=== PATIENT | male | born 1935 | race Caucasian/White ===

== ENCOUNTER 2018-11-15 11:15 | Outpatient (RCR) | payer OTHER, MEDICARE ==
[2016-07-21 15:46] VITALS: BMI 25.1
--- NOTE | 2018-11-06 10:49 | PT INITIAL EVALUATION ---
MEDICAL DIAGNOSIS: R53.1 Weakness TREATMENT DIAGNOSIS: Same, G20 Parkinson's Disease (PD), R26.9Abnormality of gait and mobility DATE OF ONSET: 03/26/18 SUBJECTIVE: Tin Hernandez (Bob) presents to PT for LE weakness from a more sedentary lifestyle after losing his son in Mar, 2018. He also has PD, LBP, hip pain, cervical stenosis affecting mobility. He lives alone in a trailer, 2 steps into it with handrail. He notes his endurance is limited, a shopping trip exhausts him, and he'd like to have more balance in outdoor ambulation. Pain location is lumbar and hips and described as ache. Jose Carlos doesn't care to rate his pain or discuss it. 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 OBJECTIVE: Posture: Upright trunk, head sidebend and rotated R ~25 degrees, B hand tremor. ROM: Tight ankles, hips, hamstrings. Strength: LE's 4/5. Special Tests: Modified Martha and Yahr Stage 3. Mobility: Sit to stand with UE use, one attempt. Gait: Jose Carlos ambulates with feet passing each other, late heel strike to early heel off, flexed LE's, diminished arm swing. He turns without lifting his feet well. Stair use without handrail, reciprocating gait. Balance: Perry Balance Assessment 44, a fall risk. Jose Carlos is able to lift a foot for 1-2 seconds for single leg sand, is able to perform rapid foot motions. He has small LOB and catches his R toes with trying to clear a curb. Forward stepping lunge with trunk shimmy. ASSESSMENT: Tin Hernandez presents with altered gait and balance, fall risk from sedentary lifestyle and PD. He's an excellent candidate to exercise to improve balance, endurance, reduce fall risk. He did well with dynamic strengthening exercises today. Short Term Goals 4 weeks: Jose Carlos shovels snow, ambulates through a full shopping trip. 8 weeks: Jose Carlos demonstrates balance recovery on uneven surfaces. Patient's Goals Improve balance, long distance community ambulator. PLAN: Patient to be seen for Strengthening/condition, Range of Motion, Stretching, Neuromuscular Re-ed, Gait Trg/Balance Trg, Home Exercise Program 2x/Week for 2 Months Thank you for this referral. If you have any questions, comments, or concerns about this report or plan, please contact me at . [facility]
[~2018-11-15 11:15] MED LIST: ASPI-1471 PO; ASPI-715 PO; BUDE10.2 INH; CARB-124 PO; CLO75 PO; CLOP75TA PO; COM14R IH; DAR100 PO; DOCU100T19 PO; LISI-346 PO; LISI-362 PO; LOR5 PO; METO-1 PO; METXR500 PO; NIT4 SL; OMEG500C7 PO; OMEP-125 PO; ONDA4TAB PO; OXYGEN INH; PAN40 PO; PANT40TA65 PO; RAN150 PO; RANI-445 PO; ROLAIDS; SIMV-44 PO; SUC1 PO; TAM4 PO; VIT C PO; ZANTAC; [UNRECOGNIZED DRUG - CODE] PO; [UNRECOGNIZED DRUG - REMARK]
--- NOTE | 2018-12-13 11:39 | PT PLAN OF CARE ---
Physician: Dr. Sandrine Cardona Patient has been ill, seen 4 times Therapist: Mounika Sprague, PT Medical Diagnosis: R53.1 Weakness Treatment Diagnosis: Same, G20 Parkinson's Disease (PD), R26.9Abnormality of gait and mobility Date of Onset: 03/26/18 Date of Initial Evaluation: 11/05/18 Date patient was last seen: 11/15/18 Number of treatments: 4 Number of cancellations/No shows: 5 INTERVENTIONS: Strengthening/condition Range of Motion Stretching Neuromuscular Re-ed Gait Trg/Balance Trg GOALS: All not met due to illness 4 weeks: Jose Carlos shovels snow, ambulates through a full shopping trip. 8 weeks: Jose Carlos demonstrates balance recovery on uneven surfaces. PATIENT'S GOAL: Improve balance, long distance community ambulator. Status of Patient's Goals: not met Patient Compliance: Excellent Prognosis: Excellent Reasons for discontinuing therapy: S: Jose Carlos had to cancel PT these last three weeks due to respiratory illness, then yesterday was admitted to [facility] for gastric bleed. He worked hard during the four sessions he was able to do PT. O: At his last visit on 11/15/18, Jose Carlos's high HR limited standing exercise (110 BPM). He was able to perform balance exercises with difficulty with pelvic and trunk stability. A/P: Tin Hernandez gave full effort during the time he was here. When he is able to, I feel he would benefit from PT to work strengthening, balance, endurance. For now, I'll DC PT due to hospitalization. Thank you. MIGUEL
== END 2018-11-15 18:00 | disposition home or self-care (01) ==
LOC: PT 11:15
PROVIDERS: ATTEND Family Medicine
DX: R53.1 Weakness (principal); R26.9 Unspecified abnormalities of gait and mobility; G20 Parkinson's disease
CPT/HCPCS: 97162

== ENCOUNTER 2018-12-03 13:23 | Emergency (ER) | payer MEDICARE, OTHER ==
[2016-07-21 15:46] VITALS: Wt 79.8 kg
--- NOTE | 2018-12-03 13:29 | ER Report ---
History and Physical Time Seen By MD: 13:29 HPI/ROS CHIEF COMPLAINT: Increased shortness of breath and cough HISTORY OF PRESENT ILLNESS: This is a 3-year-old male who presents to the emergency department for increased shortness breath and a cough. Patient states that he always has a cough however the last week he's had a productive, more intense cough. He's also had fevers and chills. No nausea or vomiting. A few loose stools no diarrhea. No chest pain. He normally is on 2 L nasal cannula continuous home however he is increase that to 3 L over the last 1-2 days, noted his SPO2 home to be in the mid to low 80s. No fevers or chills. No visual changes. No rashes, no sore throat. REVIEW OF SYSTEMS: Constitutional: As above. Eyes: No discharge. ENT: No sore throat. Cardiovascular: No chest pain, no palpitations. Respiratory: As above. Gastrointestinal: No abdominal pain, no vomiting. Genitourinary: No hematuria. Musculoskeletal: No back pain. Skin: No rashes. Neurological: No headache. Allergies: Coded Allergies: No Known Drug Allergies (Verified , 12/03/18) Uncoded Allergies: VIT B (Allergy, Intermediate, HIVES, 07/20/16) Home Meds Active Scripts Albuterol Sulfate 0.083% (ALBUTEROL SULFATE 0.083%) 2.5 Mg/3 Ml Vial.neb, 2.5 MG INH Q4-6H PRN for SHORTNESS OF BREATH, #1 BOX 0 Refills Prov:ANGELES LOWERY [facility] 12/03/18 Prednisone (PREDNISONE) 20 Mg Tablet, 20 MG PO BID, #10 TAB Prov:ANGELES LOWERY [facility]- 12/03/18 Azithromycin 250 Mg Tab (AZITHROMYCIN 250 MG TAB) 250 Mg Tablet, 1 TAB PO QDAY, #6 TAB Take 2 tabs today and then 1 tab a day until gone. Prov:ANGELES LOWERY [facility]- 12/03/18 Clopidogrel Bisulfate (CLOPIDOGREL) 75 Mg Tablet, 1 TAB PO QDAY, #30 TAB Start on 07/28/16 Prov:CATE ARGUELLO DO 07/22/16 Aspirin (ASPIR 81) 81 Mg Tablet.dr, 81 MG PO QDAY, #30 TAB Start on 07/24/16 Prov:CATE ARGUELLO DO 07/22/16 Pantoprazole Sodium (PANTOPRAZOLE SODIUM) 40 Mg Tablet.dr, 40 MG PO BID, #60 TAB.SR Prov:CATE ARGUELLO DO 07/22/16 Reported Medications Budesonide/Formoterol Fumarate (SYMBICORT 160-4.5 MCG INHALER) 10.2 Gm Inh, INH, INH 07/20/16 [place]-3 Fatty Acids (FISH OIL) 500 Mg Capsule, 1000 MG PO DAILY, CAPSULE 07/20/16 Carbidopa/Levodopa (CARBIDOPA-LEVO ER 25-100 TAB) 1 Each Tablet.er, 2 TAB PO TID 07/20/16 Oxygen (Oxygen) 2 L Inha, 2 L INH PRN, 0 Refills 05/27/11 Docusate Sodium (Stool Softener) 100 Mg Tablet, 100 MG PO, 0 Refills 05/28/11 Simvastatin (Zocor) 40 Mg Tablet, 40 MG PO QHS, 0 Refills 05/27/11 Nitroglycerin (Nitroquick) 0.4 Mg Subl, 0.4 MG SL PRN, 0 Refills 05/27/11 Albuterol/Ipratropium (Combivent Inhaler) 14.7 Gm Aer.w.adap, 2 PUFF IH BID, 0 Refills 05/27/11 Past Medical/Surgical History The patient has a past medical and surgical history of Parkinson's, headaches, myocardial infarction, CABG 4, hypercholesterolemia, hypertension, COPD, continues using oxygen, gallbladder disease, cholecystectomy, GERD, generalized joint pain, type II diabetes, wears glasses, dentures. Reviewed Nurses Notes: Yes Hx Smoking: Yes Smoking Status: Current: Every Day Smoker Hx Substance Use Disorder: No Hx Alcohol Use: Yes Constitutional Vital Sign - Last 24 Hours 12/03/18 12/03/18 12/03/18 12/03/18 13:25 13:30 13:33 13:45 Temp 98.7 Pulse 73 68 69 Resp 18 29 B/P (MAP) 170/90 Pulse Ox 92 93 91 O2 Delivery Nasal Cannula O2 Flow Rate 2.0 12/03/18 12/03/18 12/03/18 12/03/18 14:00 14:05 14:30 14:35 Pulse 62 62 62 Resp 24 27 26 B/P (MAP) 133/74 (93) 133/77 (95) Pulse Ox 91 92 92 12/03/18 12/03/18 12/03/18 12/03/18 14:50 15:00 15:05 15:20 Pulse 64 67 66 Resp 24 11 21 B/P (MAP) 146/83 (104) Pulse Ox 93 93 92 12/03/18 12/03/18 12/03/18 15:30 15:35 15:50 Pulse 64 70 Resp 23 11 B/P (MAP) 137/72 (93) Pulse Ox 93 94 Physical Exam General Appearance: The patient is alert, has no immediate need for airway protection and no signs of toxicity. Eyes: Pupils equal and round no pallor or injection. ENT, Mouth: Mucous membranes are dry, geographic tongue. Respiratory: End expiratory wheezes in all mojica, rhonchi to the right upper field, diminished in the left lower field. Cardiovascular: Regular rate and rhythm, distant, no murmurs, clicks or rubs. Gastrointestinal: Abdomen is soft and non tender, no masses, bowel sounds normal. Neurological: Alert and oriented 4. Moving all extremities. Following all commands. No focal neuro deficits. Skin: Warm and dry, no rashes. Musculoskeletal: Anterior cervical chain lymphadenopathy. Extremities are nontender, nonswollen and have full range of motion. DIFFERENTIAL DIAGNOSIS: After history and physical exam differential diagnosis was considered for shortness of breath including but not limited to pulmonary infectious process, COPD, asthma, pulmonary embolus and congestive heart failure. Medical Decision Making Data Points Result Diagram: 12/03/18 1333 12/03/18 1333 Laboratory Hematology Test 12/03/18 13:33 12/03/18 13:41 Red Blood Count 5.14 M/uL (4.00-5.60) Mean Corpuscular Volume 87.6 fL (80.0-96.0) Mean Corpuscular Hemoglobin 28.8 pg (26.0-33.0) Mean Corpuscular Hemoglobin Concent 32.9 g/dL (32.0-36.0) Red Cell Distribution Width 13.4 % (11.5-14.5) Mean Platelet Volume 7.7 fL (7.2-11.1) Neutrophils (%) (Auto) 75.8 % (39.4-72.5) Lymphocytes (%) (Auto) 13.5 % (17.6-49.6) Monocytes (%) (Auto) 9.8 % (4.1-12.4) Eosinophils (%) (Auto) 0.6 % (0.4-6.7) Basophils (%) (Auto) 0.3 % (0.3-1.4) Nucleated RBC Relative Count (auto) 0.0 /100WBC Neutrophils # (Auto) 6.6 K/uL (2.0-7.4) Lymphocytes # (Auto) 1.2 K/uL (1.3-3.6) Monocytes # (Auto) 0.8 K/uL (0.3-1.0) Eosinophils # (Auto) 0.1 K/uL (0.0-0.5) Basophils # (Auto) 0.0 K/uL (0.0-0.1) Nucleated RBC Absolute Count (auto) 0.00 K/uL Sodium Level 135 mmol/L (137-145) Potassium Level 3.2 mmol/L (3.5-5.0) Chloride Level 98 mmol/L (98-107) Carbon Dioxide Level 29 mmol/L (22-30) Blood Urea Nitrogen 7 mg/dl (9-21) Creatinine 0.70 mg/dl (0.66-1.25) Glomerular Filtration Rate Calc > 60.0 Random Glucose 156 mg/dl (75-110) Calcium Level 8.8 mg/dl (8.4-10.2) Total Bilirubin 0.6 mg/dl (0.2-1.3) Aspartate Amino Transf (AST/SGOT) 21 U/L (0-35) Alanine Aminotransferase (ALT/SGPT) < 6 U/L (0-56) Alkaline Phosphatase 77 U/L (0-126) Troponin I < 0.012 ng/ml Total Protein 7.0 g/dl (6.3-8.2) Albumin 3.5 g/dl (3.5-5.0) Influenza Virus Type A (PCR) Negative (NEGATIVE) Influenza Virus Type B (PCR) Negative (NEGATIVE) Chemistry Test 12/03/18 13:33 12/03/18 13:41 White Blood Count 8.6 k/uL (4.5-11.0) Red Blood Count 5.14 M/uL (4.00-5.60) Hemoglobin 14.8 g/dL (14.0-18.0) Hematocrit 45.0 % (42.0-52.0) Mean Corpuscular Volume 87.6 fL (80.0-96.0) Mean Corpuscular Hemoglobin 28.8 pg (26.0-33.0) Mean Corpuscular Hemoglobin Concent 32.9 g/dL (32.0-36.0) Red Cell Distribution Width 13.4 % (11.5-14.5) Platelet Count 362 K/uL (150-450) Mean Platelet Volume 7.7 fL (7.2-11.1) Neutrophils (%) (Auto) 75.8 % (39.4-72.5) Lymphocytes (%) (Auto) 13.5 % (17.6-49.6) Monocytes (%) (Auto) 9.8 % (4.1-12.4) Eosinophils (%) (Auto) 0.6 % (0.4-6.7) Basophils (%) (Auto) 0.3 % (0.3-1.4) Nucleated RBC Relative Count (auto) 0.0 /100WBC Neutrophils # (Auto) 6.6 K/uL (2.0-7.4) Lymphocytes # (Auto) 1.2 K/uL (1.3-3.6) Monocytes # (Auto) 0.8 K/uL (0.3-1.0) Eosinophils # (Auto) 0.1 K/uL (0.0-0.5) Basophils # (Auto) 0.0 K/uL (0.0-0.1) Nucleated RBC Absolute Count (auto) 0.00 K/uL Glomerular Filtration Rate Calc > 60.0 Calcium Level 8.8 mg/dl (8.4-10.2) Total Bilirubin 0.6 mg/dl (0.2-1.3) Aspartate Amino Transf (AST/SGOT) 21 U/L (0-35) Alanine Aminotransferase (ALT/SGPT) < 6 U/L (0-56) Alkaline Phosphatase 77 U/L (0-126) Troponin I < 0.012 ng/ml Total Protein 7.0 g/dl (6.3-8.2) Albumin 3.5 g/dl (3.5-5.0) Influenza Virus Type A (PCR) Negative (NEGATIVE) Influenza Virus Type B (PCR) Negative (NEGATIVE) EKG/Imaging EKG Interpretation 12 lead EKG: Time of EKG 1336. Rhythm: Normal sinus rhythm, ventricular rate 68 bpm. Austin: Incomplete right bundle branch block. QRS: normal ST segments: No ST elevation or depression identified, poor T-wave progression No previous EKGs for comparison. Imaging PATIENT NAME: Tin Hernandez : 1935 MR: [id number] V: [id number] EXAM DATE: ORDERING PHYSICIAN: ANGELES LOWERY TECHNOLOGIST: [place] [facility] [place] Patient: Tin Hernandez : 1935 Visit/Account:[id number] Date of Sevice: 12/03/2018 CHEST PA LAT Additional pertinent History: Respiratory distress. COPD. Current smoker COMPARISON STUDIES: Previous study of 03/17/2011 FINDINGS: Support lines and catheters: Oxygen tubing Lungs and Pleura: Coarse bronchitic lung changes noted in both lower lung mojica most predominantly in the left lower lung medially. No infiltrate or consolidation. No parenchymal mass lesion seen Heart and vasculature: Negative. Cindy and Mediastinum: Negative. Bones and Chest wall: Status post sternotomy. Bilateral healed rib fractures Upper Abdomen: Negative. IMPRESSION: 1. Basilar bronchitic lung changes noted. No acute cardiopulmonary disease. Report Dictated By: Maxx Hernandez MD at 12/03/2018 2:31 PM Report E-Signed By: Maxx Hernandez MD at 12/03/2018 2:37 PM WSN:[email or web address] ED Course/Re-evaluation Clinical Indication for ER IV: Hydration, IV Access ED Course The patient was admitted to room. A history and physical were obtained. Differential diagnoses were considered. An IV was started. A CBC, CMP, troponin were obtained. A two-view chest x-ray was obtained. EKG showing normal sinus rhythm. CBC unremarkable, chemistry showing sodium 135, potassium 3.2, negative troponin, negative influenza. Two-view chest x-ray showing Basilar bronchitic lung changes noted. No acute cardiopulmonary disease. I reviewed the imaging results as well as the lab studies with the patient. The patient does have a history of COPD, given his recent increase in productive coughing I did put him on a short course of prednisone, he was also given an albuterol inhaler, he was also given a prescription for azithromycin. I also written for a nebulizer for home use. He is also [facility]2 [facility] for [facility]uation. Or return to the emergency department for any other concerns. Patient expressed understanding was discharged home. Decision to Disposition Date: Dec 03, 2018 Decision to Disposition Time: 15:10 Depart Departure Latest Vital Signs Vital Signs Date Time Temp Pulse Resp B/P (MAP) Pulse Ox O2 Delivery O2 Flow Rate FiO2 12/03/18 15:50 70 11 94 12/03/18 15:30 137/72 (93) 12/03/18 13:33 2.0 12/03/18 13:25 98.7 Nasal Cannula Impression: Primary Impression: COPD (chronic obstructive pulmonary disease) Additional Impression: Cough in adult Condition: Improved Disposition: HOME OR SELF-CARE New Scripts Albuterol Sulfate 0.083% (ALBUTEROL SULFATE 0.083%) 2.5 Mg/3 Ml Vial.neb 2.5 MG INH Q4-6H PRN for SHORTNESS OF BREATH, #1 BOX 0 Refills Prov: ANGELES LOWERY [facility] 12/03/18 Prednisone (PREDNISONE) 20 Mg Tablet 20 MG PO BID, #10 TAB Prov: ANGELES LOWERY [facility] 12/03/18 Azithromycin 250 Mg Tab (AZITHROMYCIN 250 MG TAB) 250 Mg Tablet 1 TAB PO QDAY, #6 TAB Take 2 tabs today and then 1 tab a day until gone. Prov: ANGELES LOWERY [facility]- 12/03/18 Departure Forms: ER Transition Record, Home Oxygen, Nebulizer RX, Home Oxygen Company Chosen by Patient: [facility] Durable Medical Equipment-Oxygen: Nebulizer Reason for Use/Diagnosis: COPD, cough, concerning for bronchitis Start Date of the Order: Dec 03, 2018 Duration Home O2 Required: 30 Duration Units: Days ER Prescribing Physician's Name: Other NPI Numbers for Local ER MDs: Other Medications Reconciliation, Patient Portal Information Patient Instructions: COPD (Chronic Obstructive Pulmonary Disease) (ED) Additional Instructions: Although your blood work and Xray do not indicate an infectious process, with the increased productive cough, increased O2 and your history of smoking and COPD, I am going to start you on Azithromycin. Please call and schedule a follow [facility] weeks for reevaluation. Take the Azithromycin as prescribed. Take the prednisone as prescribed. Use the nebulizer as needed for coughing and shortness of breath and wheezing. Drink plenty of water. Get plenty of rest. Return to the ED for any other concerns or worsening symptoms. They may want to repeat the chest Xray. Problem Qualifiers Primary Impression: COPD (chronic obstructive pulmonary disease) COPD type: unspecified COPD Qualified Codes: J44.9 - Chronic obstructive pulmonary disease, unspecified ANGELES LOWERY-CAROL ANN Dec 03, 2018 13:29
[2018-12-03] MEDS ORDERED: NS(*) 0.9% 500 ML BAG 500 ML IV ONE (13:47)
[2018-12-03] MEDS ORDERED: ALBUTEROL/IPRATROPIUM 3 ML NEB NEB ONE (13:50)
--- NOTE | 2018-12-03 13:51 | EKG ---
FACILITY: [facility] - [place] PATIENT NAME: KAIA REDMOND : [id number] MR: [id number] V: [id number] EXAM DATE: ORDERING PHYSICIAN: ANGELES LOWERY TECHNOLOGIST: ERIKA Garcia Reason : RESPIRATORY Blood Pressure : / mmHG Vent. Rate : 068 BPM Atrial Rate : 068 BPM P-R Int : 162 ms QRS Dur : 094 ms QT Int : 412 ms P-R-T Axes : 027 004 059 degrees QTc Int : 438 ms Normal sinus rhythm Anteroseptal infarct , age undetermined Abnormal ECG No previous ECGs available Confirmed by MAU KEE ([id number]) on 12/03/2018 2:18:31 PM Referred By: ESAU BLOUNT Confirmed By:MAU KEE
[2018-12-03 13:56] LABS: PLATELET COUNT, AUTOMATED 362 K/uL (150-450)
--- NOTE | 2018-12-03 14:41 | RADIOLOGY IMAGING REPORT ---
FACILITY: [facility] - [place] PATIENT NAME: Tin Hernandez : 1935 MR: [id number] V: [id number] EXAM DATE: ORDERING PHYSICIAN: ANGELES LOWERY TECHNOLOGIST: Location: [facility] - [place], [place] Patient: Tin Hernandez : 1935 Visit/Account:[id number] Date of Sevice: 12/03/2018 CHEST PA LAT Additional pertinent History: Respiratory distress. COPD. Current smoker COMPARISON STUDIES: Previous study of 03/17/2011 FINDINGS: Support lines and catheters: Oxygen tubing Lungs and Pleura: Coarse bronchitic lung changes noted in both lower lung mojica most predominantly in the left lower lung medially. No infiltrate or consolidation. No parenchymal mass lesion seen Heart and vasculature: Negative. Cindy and Mediastinum: Negative. Bones and Chest wall: Status post sternotomy. Bilateral healed rib fractures Upper Abdomen: Negative. IMPRESSION: 1. Basilar bronchitic lung changes noted. No acute cardiopulmonary disease. Report Dictated By: Maxx Hernandez MD at 12/03/2018 2:31 PM Report E-Signed By: Maxx Hernandez MD at 12/03/2018 2:37 PM WSN:[email or web address]
[2018-12-03] MEDS ORDERED: AZIT-18 PO (15:03)
[2018-12-03] MEDS ORDERED: PRED20TA6 PO (15:03)
[2018-12-03] MEDS ORDERED: ALBU2.5V36 INH (15:10)
[2018-12-03] MEDS ORDERED: ALBUTEROL 8 GM INHALER INH ONE (15:25)
[2018-12-03 15:30] VITALS: BP 137/72
== END 2018-12-03 16:05 | disposition home or self-care (01) ==
LOC: ER 13:37
DX: J44.9 Chronic obstructive pulmonary disease, unspecified (principal); R05 Cough; F17.210 Nicotine dependence, cigarettes, uncomplicated
CPT/HCPCS: 71046; 84484; 85025; 87502; 93005; 94640; 96360; 96361; 99284; J3535; J7040; J7620; 82040; 82247; 82310; 82374; 82435; 82565; 82947; 84075; 84132; 84155; 84295; 84450; 84460; 84520

== ENCOUNTER 2018-12-12 20:34 | Inpatient (IN) | payer OTHER ==
[2016-07-21 15:46] VITALS: Wt 82.3 kg
[~2018-12-12 20:34] MED LIST changes: -ACET-1966 PO; -ASCO-182 PO; -CHOL10005 PO; -METO25TA93 PO
[2018-12-12] MEDS ORDERED: CHOL10005 PO (20:49)
[2018-12-12] MEDS ORDERED: LISI-362 PO (20:49)
[2018-12-12] MEDS ORDERED: METO25TA93 PO (20:49)
--- NOTE | 2018-12-12 20:58 | ER Report ---
History and Physical Time Seen By MD: 20:58 Hx. of Stated Complaint: pt had a bloody stool this evening. HPI/ROS CHIEF COMPLAINT: bloody stool HISTORY OF PRESENT ILLNESS: This is an 83 year old male. He had a bloody stool and diarrhea this evening. No abdominal pain. He denies melena. Has history of peptic ulcer disease, CAD with CABG, Diabetes. He is on aspirin and plavix. He denies other blood thinners. He has had melena in the past with Colonoscopy and EGD in 2010 and 2015. Saw hiatal hernia and diverticulosis in the past. No dizziness or shortness of breath. No chest pain. Allergies: Coded Allergies: No Known Drug Allergies (Verified , 12/03/18) Uncoded Allergies: VIT B (Allergy, Intermediate, HIVES, 07/20/16) Home Meds Active Scripts Albuterol Sulfate 0.083% (ALBUTEROL SULFATE 0.083%) 2.5 Mg/3 Ml Vial.neb, 2.5 MG INH Q4-6H PRN for SHORTNESS OF BREATH, #1 BOX 0 Refills Prov:ANGELES LOWERY [employer]ASS[employer]GER [employer]-BC 12/03/18 Clopidogrel Bisulfate (CLOPIDOGREL) 75 Mg Tablet, 1 TAB PO QDAY, #30 TAB Start on 07/28/16 Prov:CATE ARGUELLO DO 07/22/16 Aspirin (ASPIR 81) 81 Mg Tablet.dr, 81 MG PO QDAY, #30 TAB Start on 07/24/16 Prov:CATE ARGUELLO DO 07/22/16 Pantoprazole Sodium (PANTOPRAZOLE SODIUM) 40 Mg Tablet.dr, 40 MG PO BID, #60 TAB.SR Prov:CATE ARGUELLO DO 07/22/16 Reported Medications Metoprolol Tartrate (METOPROLOL TARTRATE) 25 Mg Tablet, 2 TAB PO BID, TAB 12/12/18 Lisinopril (LISINOPRIL) 10 Mg Tablet, 10 MG PO QDAY, TAB 12/12/18 Cholecalciferol (Vitamin D3) (VITAMIN D3) 1,000 Unit Tablet, 1000 UNIT PO DAILY, TAB 12/12/18 Budesonide/Formoterol Fumarate (SYMBICORT 160-4.5 MCG INHALER) 10.2 Gm Inh, INH, INH 07/20/16 [place]-3 Fatty Acids (FISH OIL) 500 Mg Capsule, 1000 MG PO DAILY, CAPSULE 07/20/16 Carbidopa/Levodopa (CARBIDOPA-LEVO ER 25-100 TAB) 1 Each Tablet.er, 2 TAB PO TID 07/20/16 Oxygen (Oxygen) 2 L Inha, 2 L INH PRN, 0 Refills 05/27/11 Docusate Sodium (Stool Softener) 100 Mg Tablet, 100 MG PO, 0 Refills 05/28/11 Simvastatin (Zocor) 40 Mg Tablet, 40 MG PO QHS, 0 Refills 05/27/11 Nitroglycerin (Nitroquick) 0.4 Mg Subl, 0.4 MG SL PRN, 0 Refills 05/27/11 Albuterol/Ipratropium (Combivent Inhaler) 14.7 Gm Aer.w.adap, 2 PUFF IH BID, 0 R efills 05/27/11 Discontinued Scripts Prednisone (PREDNISONE) 20 Mg Tablet, 20 MG PO BID, #10 TAB Prov:ANG[facility]ES L[facility]- 12/03/18 Azithromycin 250 Mg Tab (AZITHROMYCIN 250 MG TAB) 250 Mg Tablet, 1 TAB PO QDAY, #6 TAB Take 2 tabs today and then 1 tab a day until gone. Prov:ANGELES LOWERY [facility]- 12/03/18 Reviewed Nurses Notes: Yes Hx Smoking: Yes Smoking Status: Current: Every Day Smoker Hx Substance Use Disorder: No Hx Alcohol Use: Yes Constitutional Vital Sign - Last 24 Hours 12/12/18 12/12/18 12/12/18 12/12/18 20:34 20:39 20:40 21:00 Temp 99.0 Pulse ??? 79 Resp 16 B/P (MAP) 171/90 (117) 171/90 163/82 (109) Pulse Ox 95 O2 Delivery High-Flow Nasal Cannula 12/12/18 12/12/18 12/12/18 12/12/18 21:04 21:30 21:34 22:00 Pulse 71 ??? B/P (MAP) 169/83 (111) 149/78 (101) Pulse Ox 96 96 12/12/18 12/12/18 12/12/18 12/12/18 22:04 22:09 22:30 22:39 Pulse 68 68 68 B/P (MAP) 138/69 (92) Pulse Ox 100 100 86 12/12/18 12/12/18 12/12/18 12/12/18 23:00 23:09 23:14 23:30 Pulse 68 77 B/P (MAP) 135/71 (92) 141/74 (96) Pulse Ox 86 87 12/12/18 12/13/18 23:44 00:00 Pulse 66 B/P (MAP) 137/70 (92) Pulse Ox 86 Physical Exam General Appearance: The patient is alert. No acute distress. Eyes: Pupils are equal, round. No pallor, injection or icterus. Extraocular movements are intact. ENT: Mucous membranes are moist. Normal oral mucosa. Posterior oropharynx is normal. Neck: Supple and non tender. No lymphadenopathy. Respiratory: Lungs are clear to auscultation. There are no retractions or accessory muscle use. Cardiovascular: Regular rate and rhythm. No murmurs, gallops or rubs. Normal capillary refill. No edema. Gastrointestinal: Abdomen is soft and non tender. Nondistended. Normal active bowel sounds. No costovertebral angle tenderness with percussion. Rectal exam without masses, no external hemorroids, Grossly bloody stool. Neurological: Alert and oriented x3. Skin: Warm and dry. No rashes. No bruising. Musculoskeletal: Extremities are nontender. No tenderness in palpation of the cervical, thoracic and lumbar spine. DIFFERENTIAL DIAGNOSIS: After history and physical exam, differential diagnosis was considered for blood in stool. Medical Decision Making Data Points Result Diagram: 12/12/18202912/12/182029 Laboratory Hematology Test 12/12/18 20:30 Red Blood Count 5.20 M/uL (4.00-5.60) Mean Corpuscular Volume 87.5 fL (80.0-96.0) Mean Corpuscular Hemoglobin 28.5 pg (26.0-33.0) Mean Corpuscular Hemoglobin Concent 32.5 g/dL (32.0-36.0) Red Cell Distribution Width 13.6 % (11.5-14.5) Mean Platelet Volume 8.4 fL (7.2-11.1) Neutrophils (%) (Auto) 72.9 % (39.4-72.5) Lymphocytes (%) (Auto) 14.4 % (17.6-49.6) Monocytes (%) (Auto) 8.2 % (4.1-12.4) Eosinophils (%) (Auto) 1.8 % (0.4-6.7) Basophils (%) (Auto) 2.7 % (0.3-1.4) Nucleated RBC Relative Count (auto) 0.0 /100WBC Neutrophils # (Auto) 5.6 K/uL (2.0-7.4) Lymphocytes # (Auto) 1.1 K/uL (1.3-3.6) Monocytes # (Auto) 0.6 K/uL (0.3-1.0) Eosinophils # (Auto) 0.1 K/uL (0.0-0.5) Basophils # (Auto) 0.2 K/uL (0.0-0.1) Nucleated RBC Absolute Count (auto) 0.00 K/uL Prothrombin Time 12.9 seconds (12.0-14.4) Prothromb Time International Ratio 0.97 Activated Partial Thromboplast Time 35 seconds (23-35) Urine Color Yellow Urine Clarity Clear Urine pH 6.0 pH (4.8-9.5) Urine Specific [place] 1.018 Urine Protein Negative mg/dL (NEGATIVE) Urine Glucose (UA) Negative mg/dL (NEGATIVE) Urine Ketones Trace mg/dL (NEGATIVE) Urine Blood Negative (NEGATIVE) Urine Nitrite Negative (NEGATIVE) Urine Bilirubin Negative (NEGATIVE) Urine Urobilinogen 4.0 mg/dL (0.2-1.9) Urine Leukocyte Esterase Negative (NEGATIVE) Urine RBC 3 /HPF (0-2/HPF) Urine WBC 1 /HPF (0-5/HPF) Urine Squamous Epithelial Cells None /LPF (</=FEW) Urine Bacteria Negative /HPF (NONE-FEW) Urine Mucus None /HPF (NONE-FEW) Sodium Level 138 mmol/L (137-145) Potassium Level 3.4 mmol/L (3.5-5.0) Chloride Level 98 mmol/L (98-107) Carbon Dioxide Level 31 mmol/L (22-30) Blood Urea Nitrogen 12 mg/dl (9-21) Creatinine 0.80 mg/dl (0.66-1.25) Glomerular Filtration Rate Calc > 60.0 Random Glucose 173 mg/dl (75-110) Calcium Level 8.9 mg/dl (8.4-10.2) Total Bilirubin 0.5 mg/dl (0.2-1.3) Aspartate Amino Transf (AST/SGOT) 15 U/L (0-35) Alanine Aminotransferase (ALT/SGPT) < 6 U/L (0-56) Alkaline Phosphatase 80 U/L (0-126) Total Protein 7.3 g/dl (6.3-8.2) Albumin 3.6 g/dl (3.5-5.0) Chemistry Test 12/12/18 20:30 White Blood Count 7.6 k/uL (4.5-11.0) Red Blood Count 5.20 M/uL (4.00-5.60) Hemoglobin 14.8 g/dL (14.0-18.0) Hematocrit 45.5 % (42.0-52.0) Mean Corpuscular Volume 87.5 fL (80.0-96.0) Mean Corpuscular Hemoglobin 28.5 pg (26.0-33.0) Mean Corpuscular Hemoglobin Concent 32.5 g/dL (32.0-36.0) Red Cell Distribution Width 13.6 % (11.5-14.5) Platelet Count 347 K/uL (150-450) Mean Platelet Volume 8.4 fL (7.2-11.1) Neutrophils (%) (Auto) 72.9 % (39.4-72.5) Lymphocytes (%) (Auto) 14.4 % (17.6-49.6) Monocytes (%) (Auto) 8.2 % (4.1-12.4) Eosinophils (%) (Auto) 1.8 % (0.4-6.7) Basophils (%) (Auto) 2.7 % (0.3-1.4) Nucleated RBC Relative Count (auto) 0.0 /100WBC Neutrophils # (Auto) 5.6 K/uL (2.0-7.4) Lymphocytes # (Auto) 1.1 K/uL (1.3-3.6) Monocytes # (Auto) 0.6 K/uL (0.3-1.0) Eosinophils # (Auto) 0.1 K/uL (0.0-0.5) Basophils # (Auto) 0.2 K/uL (0.0-0.1) Nucleated RBC Absolute Count (auto) 0.00 K/uL Prothrombin Time 12.9 seconds (12.0-14.4) Prothromb Time International Ratio 0.97 Activated Partial Thromboplast Time 35 seconds (23-35) Urine Color Yellow Urine Clarity Clear Urine pH 6.0 pH (4.8-9.5) Urine Specific [place] 1.018 Urine Protein Negative mg/dL (NEGATIVE) Urine Glucose (UA) Negative mg/dL (NEGATIVE) Urine Ketones Trace mg/dL (NEGATIVE) Urine Blood Negative (NEGATIVE) Urine Nitrite Negative (NEGATIVE) Urine Bilirubin Negative (NEGATIVE) Urine Urobilinogen 4.0 mg/dL (0.2-1.9) Urine Leukocyte Esterase Negative (NEGATIVE) Urine RBC 3 /HPF (0-2/HPF) Urine WBC 1 /HPF (0-5/HPF) Urine Squamous Epithelial Cells None /LPF (</=FEW) Urine Bacteria Negative /HPF (NONE-FEW) Urine Mucus None /HPF (NONE-FEW) Glomerular Filtration Rate Calc > 60.0 Calcium Level 8.9 mg/dl (8.4-10.2) Total Bilirubin 0.5 mg/dl (0.2-1.3) Aspartate Amino Transf (AST/SGOT) 15 U/L (0-35) Alanine Aminotransferase (ALT/SGPT) < 6 U/L (0-56) Alkaline Phosphatase 80 U/L (0-126) Total Protein 7.3 g/dl (6.3-8.2) Albumin 3.6 g/dl (3.5-5.0) Coagulation Test 12/12/18 20:30 Prothrombin Time 12.9 seconds Prothromb Time International Ratio 0.97 Activated Partial Thromboplast Time 35 seconds Urinalysis Test 12/12/18 20:30 Urine Color Yellow Urine Clarity Clear Urine pH 6.0 pH (4.8-9.5) Urine Specific [place] 1.018 Urine Protein Negative mg/dL (NEGATIVE) Urine Glucose (UA) Negative mg/dL (NEGATIVE) Urine Ketones Trace mg/dL (NEGATIVE) Urine Blood Negative (NEGATIVE) Urine Nitrite Negative (NEGATIVE) Urine Bilirubin Negative (NEGATIVE) Urine Urobilinogen 4.0 mg/dL (0.2-1.9) Urine Leukocyte Esterase Negative (NEGATIVE) Urine RBC 3 /HPF (0-2/HPF) Urine WBC 1 /HPF (0-5/HPF) Urine Squamous Epithelial Cells None /LPF (</=FEW) Urine Bacteria Negative /HPF (NONE-FEW) Urine Mucus None /HPF (NONE-FEW) ED Course/Re-evaluation Clinical Indication for ER IV: IV Access ED Course Labs show normal coags, H/H and platelets. Had another small bowel movement here, grossly bloody but not large amount. Type and screen ordered. Discussed with Dr. Gay who accepted the patient for admission. Decision to Disposition Date: Dec 12, 2018 Decision to Disposition Time: 23:01 Depart Departure Latest Vital Signs Vital Signs Date Time Temp Pulse Resp B/P (MAP) Pulse Ox O2 Delivery O2 Flow Rate FiO2 12/13/18 00:00 137/70 (92) 12/12/18 23:44 66 86 12/12/18 20:40 99.0 16 High-Flow Nasal Cannula Impression: Primary Impression: GI bleeding Condition: Condition Unchanged Disposition: Admitted from ER Problem Qualifiers Primary Impression: GI bleeding GI bleed type/associated pathology: unspecified gastrointestinal hemorrhage type Qualified Codes: K92.2 - Gastrointestinal hemorrhage, unspecified BARBARA VAZQUEZ MD Dec 12, 2018 20:58
[2018-12-12 21:57] LABS: PLATELET COUNT, AUTOMATED 347 K/uL (150-450)
[2018-12-12 22:01] LABS: INR 0.97
[2018-12-13] VITALS (7 sets, daily range): BP systolic 138–156; BP diastolic 71–92
[2018-12-13] MEDS ORDERED: NS(*) 0.9% 1000 ML BAG 1,000 ML IV PRN (01:05)
[2018-12-13] MEDS ORDERED: MORPHINE 2 MG/ML SYR IVP PRN (01:05)
[2018-12-13] MEDS ORDERED: ONDANSETRON 4 MG/2 ML VIAL IVP PRN (01:05)
[2018-12-13] MEDS ORDERED: FLUSH 10 ML SYR IVP PRN (08:20)
[2018-12-13] MEDS ORDERED: NITROGLYCERIN 0.4 MG SUBL SL SCH (08:20)
[2018-12-13] MEDS ORDERED: ALBUTEROL 2.5 MG/3 ML NEB INH PRN (08:20)
[2018-12-13] MEDS ORDERED: PANTOPRAZOLE SOD 40 MG TABEC PO SCH (09:00)
[2018-12-13] MEDS: CHOLECALCIFEROL 1000 UNIT TAB PO SCH ×2 (09:00→09:02)
[2018-12-13] MEDS: LISINOPRIL 10 MG TAB PO SCH (09:02)
[2018-12-13] MEDS: DOCUSATE SODIUM 100 MG CAP PO SCH ×2 (09:02→20:31)
[2018-12-13] MEDS: METOPROLOL TART 50 MG TAB PO SCH ×2 (09:18→20:31)
[2018-12-13] MEDS: ACETAMINOPHEN 325 MG TAB PO PRN ×2 (09:19→21:28)
[2018-12-13] MEDS: PANTOPRAZOLE SOD 40 MG TABEC PO SCH ×2 (09:19→20:31)
[2018-12-13] MEDS: LEVODOPA PO SCH ×3 (09:30→20:31)
[2018-12-13] MEDS: TABCR PO SCH ×3 (09:30→20:31)
[2018-12-13] MEDS: [UNRECOGNIZED DRUG - OTHER] PO SCH ×3 (09:30→20:31)
--- NOTE | 2018-12-13 09:30 | Gen Surgery History & Physical ---
History of Present Illness Chief Complaint Bright red blood per rectum History of Present Illness 83-year-old gentleman, known to me as I have treated him in the past for GI bleeding, comes into the emergency room after having had what he perceived to be a single large volume bright red blood per rectum. He was also complaining of some lightheadedness. He had no nausea, vomiting, abdominal pain, diarrhea, or constipation. He does have a remote history of hemorrhoids. 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 He then had another episode of melena 2 years ago and EGD and colonoscopy were once again completed with findings of diverticulosis but no active bleeding and no source of bleeding was identified. He is on chronic Plavix for coronary artery disease. He was admitted to the hospital and his vital signs are been stable overnight and he has had no further blood per rectum although he has had no bowel movements at all. He is passing flatus. He does have a previous history of peptic ulcer disease. History Problems: (1) CAD (coronary artery disease) Status: Chronic (2) PUD (peptic ulcer disease) Status: Chronic (3) Parkinsonian tremor Status: Chronic (4) Type 2 diabetes mellitus Status: Chronic (5) COPD (chronic obstructive pulmonary disease) Status: Chronic (6) S/P CABG (coronary artery bypass graft) Status: Resolved (7) S/P cholecystectomy Status: Resolved (8) S/P ERCP Status: Resolved (9) FH: heart attack (10) Family history of blood clots (11) FH: cancer of GI tract Home Meds Active Scripts Albuterol Sulfate 0.083% (ALBUTEROL SULFATE 0.083%) 2.5 Mg/3 Ml Vial.neb, 2.5 MG INH Q4-6H PRN for SHORTNESS OF BREATH, #1 BOX 0 Refills Prov:ANGELES LOWERY [employer] EDUCATION WORKER COORDINATOR-BC 12/03/18 Clopidogrel Bisulfate (CLOPIDOGREL) 75 Mg Tablet, 1 TAB PO QDAY, #30 TAB Start on 07/28/16 Prov:CATE ARGUELLO DO 07/22/16 Aspirin (ASPIR 81) 81 Mg Tablet.dr, 81 MG PO QDAY, #30 TAB Start on 07/24/16 Prov:CATE ARGUELLO DO 07/22/16 Pantoprazole Sodium (PANTOPRAZOLE SODIUM) 40 Mg Tablet.dr, 40 MG PO BID, #60 TAB.SR Prov:CATE ARGUELLO DO 07/22/16 Reported Medications Metoprolol Tartrate (METOPROLOL TARTRATE) 25 Mg Tablet, 2 TAB PO BID, TAB 12/12/18 Lisinopril (LISINOPRIL) 10 Mg Tablet, 10 MG PO QDAY, TAB 12/12/18 Budesonide/Formoterol Fumarate (SYMBICORT 160-4.5 MCG INHALER) 10.2 Gm Inh, INH, INH 07/20/16 [place]-3 Fatty Acids (FISH OIL) 500 Mg Capsule, 1000 MG PO DAILY, CAPSULE 07/20/16 Carbidopa/Levodopa (CARBIDOPA-LEVO ER 25-100 TAB) 1 Each Tablet.er, 2 TAB PO TID 07/20/16 Oxygen (Oxygen) 2 L Inha, 2 L INH PRN, 0 Refills 05/27/11 Docusate Sodium (Stool Softener) 100 Mg Tablet, 100 MG PO, 0 Refills 05/28/11 Simvastatin (Zocor) 40 Mg Tablet, 40 MG PO QHS, 0 Refills 05/27/11 Nitroglycerin (Nitroquick) 0.4 Mg Subl, 0.4 MG SL PRN, 0 Refills 05/27/11 Albuterol/Ipratropium (Combivent Inhaler) 14.7 Gm Aer.w.adap, 2 PUFF IH BID, 0 Refills 05/27/11 Discontinued Reported Medications Cholecalciferol (Vitamin D3) (VITAMIN D3) 1,000 Unit Tablet, 1000 UNIT PO DAILY, TAB 12/12/18 Discontinued Scripts Prednisone (PREDNISONE) 20 Mg Tablet, 20 MG PO BID, #10 TAB Prov:ANGELES LOWERY [employer]UC[employer] WORKER COORDINATOR-BC 12/03/18 Azithromycin 250 Mg Tab (AZITHROMYCIN 250 MG TAB) 250 Mg Tablet, 1 TAB PO QDAY, #6 TAB Take 2 tabs today and then 1 tab a day until gone. Prov:ANGELES LOWERY [employer] EDUC[employer] WORKER COORDINATOR-[employer] 12/03/18 Allergies: Coded Allergies: No Known Drug Allergies (Verified , 12/03/18) Uncoded Allergies: VIT B (Allergy, Intermediate, HIVES, 07/20/16) Patient History: Aneurysm Blood clots FATHER BROTHER OR SISTER FH: cancer of GI tract BROTHER OR SISTER FH: heart attack MOTHER BROTHER OR SISTER Exam General Appearance: Alert, Awake, No Acute Distress, Afebrile Neuro: No Gross deficits Eyes: PERRLA GI: Abd Soft and Non-Tender Extremities: Warm, Perfused Psych: Alert & Oriented X3, Appropriate Mood & Affect Medical Decision Making Data Points Result Diagram: 12/12/18202912/12/182029 Assessment and Plan Problems: (1) GI bleeding Status: Acute Assessment & Plan: 12/13/18: There is no signs of continued ongoing bleeding. We'll recheck the blood count this morning. Vitals have been completely stable. He is asymptomatic this morning. I discussed performing colonoscopy on him but he is not to motivated to do this, especially since he just had one 2 years ago. I discussed the options of observing him today and if he has no further episodes of bleeding other than possibly passing residual blood and his hemoglobin is stable his vital signs are stable then I can let him go home later today or tomorrow but if he has any recurrences then I have told him that it would be mandatory to perform colonoscopy. He is agreeable with this plan. I will check on him later today. Condition Stable Time Spent: < 30 min Venous Thromboembolism VTE Risk Physician Assess for VTE Risk: Yes Patient's VTE Risk: Low VTE Diagnostic Test 2 Days Prior to Admit: No Antithrombotics Is Pt On Any Antithrombotics?: No Prophylaxis Tx Contraindicated Pharmacological Contraindicati: Active Bleeding Problem Qualifiers (1) GI bleeding: GI bleed type/associated pathology: unspecified gastrointestinal hemorrhage type Qualified Codes: K92.2 - Gastrointestinal hemorrhage, unspecified CATE GUERRIER MD Dec 13, 2018 09:30
[2018-12-13] MEDS: OMEGA-3 500 MG CAP PO SCH (09:52)
[2018-12-13 10:26] LABS: PLATELET COUNT, AUTOMATED 282 K/uL (150-450)
[2018-12-13] MEDS: COMBIVENT 4 GR INHALER IH SCH ×2 (10:33→17:00)
[2018-12-13] MEDS: BUDESO/FORMOT 160/4.5 MCG 6 GM INH SCH ×2 (10:33→17:00)
[2018-12-13] MEDS ORDERED: ACET-1966 PO (14:19)
[2018-12-13] MEDS ORDERED: ASCO-182 PO (14:19)
[2018-12-13] MEDS ORDERED: SIMVASTATIN 40 MG TAB PO SCH (21:00)
[2018-12-14 03:19] VITALS: BP 131/75
[2018-12-14 05:44] LABS: PLATELET COUNT, AUTOMATED 258 K/uL (150-450)
[2018-12-14] MEDS: COMBIVENT 4 GR INHALER IH SCH (06:24)
[2018-12-14] MEDS: BUDESO/FORMOT 160/4.5 MCG 6 GM INH SCH (06:24)
--- NOTE | 2018-12-14 07:27 | Short(Outpt) Discharge Summary ---
Discharge Summary Reason for Hosp/Final Diag: (1) GI bleeding Status: Acute Hospital Course & Plan: 12/13/18: There is no signs of continued ongoing bleeding. We'll recheck the blood count this morning. Vitals have been completely stable. He is asymptomatic this morning. I discussed performing colonoscopy on him but he is not to motivated to do this, especially since he just had one 2 years ago. I discussed the options of observing him today and if he has no further episodes of bleeding other than possibly passing residual blood and his hemoglobin is stable his vital signs are stable then I can let him go home later today or tomorrow but if he has any recurrences then I have told him that it would be mandatory to perform colonoscopy. He is agreeable with this plan. I will check on him later today. 12/14/18: Doing well. Had normal non-bloody BM last evening. H/H stable. Pt reports he's sure he has a hemorrhoid as he now has his "typical" hemorrhoid symptoms. No other complaints this morning. Will d/c to home today. Hold off on Plavix and aspirin for 2 weeks. I recommended that he start a daily fiber supplement. Departure Discharge to: Home, Self Care Discharge Instructions Home Meds Active Scripts Albuterol Sulfate 0.083% (ALBUTEROL SULFATE 0.083%) 2.5 Mg/3 Ml Vial.neb, 2.5 MG INH Q4-6H PRN for SHORTNESS OF BREATH, #1 BOX 0 Refills Prov:ANGELES LOWERY [employer]- 12/03/18 Clopidogrel Bisulfate (CLOPIDOGREL) 75 Mg Tablet, 1 TAB PO QDAY, #30 TAB Start on 07/28/16 Prov:CATE ARGUELLO DO 07/22/16 Aspirin (ASPIR 81) 81 Mg Tablet., 81 MG PO QDAY, #30 TAB Start on 07/24/16 Prov:CATE ARGUELLO DO 07/22/16 Pantoprazole Sodium (PANTOPRAZOLE SODIUM) 40 Mg Tablet., 40 MG PO BID, #60 TAB.SR Prov:CATE ARGUELLO DO 07/22/16 Reported Medications Acetaminophen (TYLENOL) 325 Mg Tablet, 325 MG PO PRN, TAB 12/13/18 Ascorbic Acid (VITAMIN C) 500 Mg Tablet, 1000 MG PO QDAY, TAB 12/13/18 Metoprolol Tartrate (METOPROLOL TARTRATE) 25 Mg Tablet, 2 TAB PO BID, TAB 12/12/18 Lisinopril (LISINOPRIL) 10 Mg Tablet, 10 MG PO QDAY, TAB 12/12/18 Budesonide/Formoterol Fumarate (SYMBICORT 160-4.5 MCG INHALER) 10.2 Gm Inh, 1 PUFF INH 2XD, INH 07/20/16 [place]-3 Fatty Acids (FISH OIL) 500 Mg Capsule, 1000 MG PO DAILY, CAPSULE 07/20/16 Carbidopa/Levodopa (CARBIDOPA-LEVO ER 25-100 TAB) 1 Each Tablet.er, 2 TAB PO TID 07/20/16 Oxygen (Oxygen) 2 L Inha, 2 L INH PRN, 0 Refills 05/27/11 Docusate Sodium (Stool Softener) 100 Mg Tablet, 100 MG PO, 0 Refills 05/28/11 Simvastatin (Zocor) 40 Mg Tablet, 40 MG PO QHS, 0 Refills 05/27/11 Nitroglycerin (Nitroquick) 0.4 Mg Subl, 0.4 MG SL PRN, 0 Refills 05/27/11 Albuterol/Ipratropium (Combivent Inhaler) 14.7 Gm Aer.w.adap, 1 PUFF IH 4XD, 0 Refills 05/27/11 Discontinued Reported Medications Cholecalciferol (Vitamin D3) (VITAMIN D3) 1,000 Unit Tablet, 1000 UNIT PO DAILY, TAB 12/12/18 Discontinued Scripts Prednisone (PREDNISONE) 20 Mg Tablet, 20 MG PO BID, #10 TAB Prov:ANGELES LOWERYP- 12/03/18 Azithromycin 250 Mg Tab (AZITHROMYCIN 250 MG TAB) 250 Mg Tablet, 1 TAB PO QDAY, #6 TAB Take 2 tabs today and then 1 tab a day until gone. Prov:NAGELES LOWERY [employer]- 12/03/18 Diet: Regular Activity: As Tolerated Special Instructions: Start taking a daily fiber supplement such as metamucil or citrucel. Stay off Plavix and aspirin until December 29. You may restart both Plavix and a baby aspirin on December 30. If you have continued problems with rectal bleeding, call my office at [phone] for an appointment or if it's severe bleeding then come in to the ER. If you continue having issues with bleeding then we'll need to repeat your colonoscopy. Problem Qualifiers (1) GI bleeding: GI bleed type/associated pathology: unspecified gastrointestinal hemorrhage type Qualified Codes: K92.2 - Gastrointestinal hemorrhage, unspecified CATE GUERRIER MD Dec 14, 2018 07:27
[2018-12-14] MEDS: CHOLECALCIFEROL 1000 UNIT TAB PO SCH (09:00)
[2018-12-14 09:01] VITALS: BP 144/84
[2018-12-14] MEDS: OMEGA-3 500 MG CAP PO SCH (09:08)
[2018-12-14] MEDS: LISINOPRIL 10 MG TAB PO SCH (09:08)
[2018-12-14] MEDS: DOCUSATE SODIUM 100 MG CAP PO SCH (09:08)
[2018-12-14] MEDS: LEVODOPA PO SCH (09:09)
[2018-12-14] MEDS: [UNRECOGNIZED DRUG - OTHER] PO SCH (09:09)
[2018-12-14] MEDS: TABCR PO SCH (09:09)
[2018-12-14] MEDS: METOPROLOL TART 50 MG TAB PO SCH (09:10)
[2018-12-14] MEDS: PANTOPRAZOLE SOD 40 MG TABEC PO SCH (09:10)
[2018-12-14] MEDS: ACETAMINOPHEN 325 MG TAB PO PRN (09:16)
[2018-12-14] MEDS ORDERED: INFLUENZA VIRUS VAC 0.5ML SYR IM ONLY ONE (09:51)
== END 2018-12-14 12:15 | disposition home or self-care (01) | DRG 379 ==
LOC: ER 21:01 → UNDOADMIN 23:35 → MED 23:35
PROVIDERS: ADMIT Surgery; ATTEND Surgery
DX: K92.2 Gastrointestinal hemorrhage, unspecified (principal); K92.1 Melena; I25.10 Atherosclerotic heart disease of native coronary artery without angina pectoris; E11.9 Type 2 diabetes mellitus without complications; F17.210 Nicotine dependence, cigarettes, uncomplicated; G20 Parkinson's disease; J44.9 Chronic obstructive pulmonary disease, unspecified; Z95.1 Presence of aortocoronary bypass graft; Z90.49 Acquired absence of other specified parts of digestive tract
CPT/HCPCS: 36415; 81001; 82040; 82247; 82310; 82374; 82435; 82565; 82947; 84075; 84132; 84155; 84295; 84450; 84460; 84520; 85025; 85610; 85730; 86850; 86900; 86901; 94640; 99284; J3535

== ENCOUNTER → 2018-12-12 | Outpatient (CLI) | payer OTHER ==
[2016-07-21 15:46] VITALS: BMI 25.1
[~2018-12-12] MED LIST changes: +ACET-1966 PO; +ALBU2.5V36 INH; +ASCO-182 PO; +AZIT-18 PO; +CHOL10005 PO; +METO25TA93 PO; +PRED20TA6 PO
== END ==
LOC: AMB 20:11
PROVIDERS: ATTEND Nurse Practitioner
DX: K92.1 Melena (principal); R19.30 Abdominal rigidity, unspecified site; I10 Essential (primary) hypertension
CPT/HCPCS: A0425; A0427